=== PATIENT | female | born 1960 | race Caucasian/White ===

== ENCOUNTER 2019-02-26 18:41 | Emergency (ER) | payer OTHER ==
[~2019-02-26] VITALS: Ht 162.6 cm; Wt 75.0 kg
[2019-02-26] MEDS ORDERED: HYDROcodone/acetaminophen 5mg/325mg tablet PO STA (18:47)
[2019-02-26] MEDS ORDERED: naproxen sodium 220mg tablet PO STA (18:47)
[2019-02-26] MEDS ORDERED: BUPIVAcaine/PF 2.5 mg/ml (0.25%) 30ml vial IJ ONE (19:50)
[2019-02-26] MEDS ORDERED: cyclobenzaprine 10mg tablet PO ONE (19:50)
[2019-02-26] MEDS ORDERED: ketorolac trometh. 30mg/ml inj. IM ONE (19:50)
[2019-02-26] MEDS ORDERED: LIDOcaine 1% W/epiNEPHrine 1:100,000 20ml vial SQ ONE (19:50)
[2019-02-26] MEDS ORDERED: naproxen 500mg tablet PO ONE (19:50)
[2019-02-26] MEDS ORDERED: BUPIVAcaine/PF 2.5mg/ml (0.25%) 10ml vial IJ ONE (20:05)
[2019-02-26] MEDS ORDERED: CYCL-1 PO (20:46)
[2019-02-26 20:59] VITALS: BP 168/93
[2019-02-27] MEDS ORDERED: HYDR-3965 PO (15:35)
[2019-02-27] MEDS ORDERED: ONDA4TAB6 PO (15:35)
== END 2019-02-26 21:00 | disposition home or self-care (01) ==
LOC: ER 18:42
DX: M25.511 Pain in right shoulder (principal); M79.18 Myalgia, other site
CPT/HCPCS: 20552; 73030; 99284; J3490

== ENCOUNTER 2019-02-27 15:04 | Emergency (ER) | payer OTHER ==
[~2019-02-27] VITALS: Ht 165.1 cm; Wt 72.0 kg
[~2019-02-27 15:04] MED LIST: CYCL-1 PO
[2019-02-27 15:08] VITALS: BP 136/73
[2019-02-27] MEDS ORDERED: ketorolac tromethamine 15mg/ml inj. IM ONE (15:30)
[2019-02-27] MEDS ORDERED: ONDA4TAB6 PO (15:35)
[2019-02-27] MEDS ORDERED: HYDR-3965 PO (15:35)
== END 2019-02-27 16:05 | disposition home or self-care (01) ==
LOC: ER 15:04
DX: S46.001A Unspecified injury of muscle(s) and tendon(s) of the rotator cuff of right shoulder, initial encounter (principal); X50.1XXA Overexertion from prolonged static or awkward postures, initial encounter; Y93.89 Activity, other specified; Y92.89 Other specified places as the place of occurrence of the external cause; Y99.9 Unspecified external cause status
CPT/HCPCS: 29105; 96372; 99283; J1885

== ENCOUNTER 2019-08-19 05:37 | Day surgery (SDC) | payer OTHER ==
[2019-08-14 15:58] LABS: BASOPHILS # (AUTO) 0.1 X10'3 (0-0.2); BASOPHILS % (AUTO) 0.6 % (0-1); EOSINOPHILS # (AUTO) 0.1 X10'3 (0-0.9); EOSINOPHILS % (AUTO) 1.4 % (0-6); LYMPHOCYTES # (AUTO) 2.6 X10'3 (1.1-4.8); LYMPHOCYTES % (AUTO) 29.4 % (21-51); MEAN CORPUSCULAR HEMOGLOBIN 31.3 PG (27.0-31.0); MEAN CORPUSCULAR HGB CONC 33.8 g/dL (33.0-36.5); MEAN CORPUSCULAR VOLUME 92.6 FL (78-98); MEAN PLATELET VOLUME 8.9 FL (7.4-10.4); MONOCYTES # (AUTO) 0.6 X10'3 (0-0.9); MONOCYTES % (AUTO) 6.2 % (2-12); NEUTROPHILS # (AUTO) 5.6 X10'3 (1.8-7.7); NEUTROPHILS % (AUTO) 62.4 % (42-75); PRE OP HEMATOCRIT 39.9 % (35.0-45.0); PRE OP HEMOGLOBIN 13.5 g/dL (12.0-16.0); PRE OP PLATELET COUNT 310 X10'3 (140-440); RED BLOOD COUNT 4.31 X10'6 (4.20-5.60); RED CELL DISTRIBUTION WIDTH 13.2 % (11.5-14.5)
[2019-08-14 16:11] LABS: ALBUMIN 4.2 G/DL (3.4-5.0); ALBUMIN/GLOBULIN RATIO 1.3 (1.1-1.5); ALKALINE PHOSPHATASE 78 IU/L (46-116); BLOOD UREA NITROGEN 11 MG/DL (7-18); BUN/CREATININE RATIO 11.2 (6.6-38.0); CALCIUM 9.4 MG/DL (8.5-10.1); CHLORIDE 107 MMOL/L (99-107); CREATININE 0.98 MG/DL (0.40-0.90); PRE OP ALT 25 U/L (30-65); PRE OP ANION GAP 11 (8-16); PRE OP AST 17 U/L (10-37); PRE OP BILIRUB, TOTAL 0.5 MG/DL (0.0-1.0); PRE OP GLUCOSE 90 MG/DL (70-104); PRE OP SODIUM 144 MMOL/L (135-145); TOTAL CARBON DIOXIDE 26.5 MMOL/L (24-32); TOTAL PROTEIN 7.5 G/DL (6.4-8.2); eGFR 58 ML/MIN
[2019-08-19] VITALS (10 sets, daily range): BP systolic 112–175; BP diastolic 72–99
[~2019-08-19] VITALS: Ht 160 cm; Wt 77.1 kg
[~2019-08-19 05:37] MED LIST changes: -CYCL-1 PO; +NAPR-56 PO; +ceFAZolin 2gm in dextrose, iso 50 ML IV ONE; +famotidine 20mg tablet PO ONE; +ringers solution, lacted 1,000 ML IV SCH
[2019-08-19] MEDS ORDERED: LIDOcaine 1% (10mg/ml) 2ml vial ONE (06:30)
[2019-08-19] MEDS ORDERED: epiNEPHrine 1 mg/ml 30ml MDV ONE (06:48)
[2019-08-19] MEDS ORDERED: BUPIVAcaine/PF 2.5 mg/ml (0.25%) 30ml vial ONE (06:48)
[2019-08-19] MEDS ORDERED: propofol (Diprivan) 10mg/ml 100ml bottle IV ONE (07:15)
[2019-08-19] MEDS ORDERED: dexmedetomidine 200mcg/2ml inj. IV ONE (07:20)
[2019-08-19] MEDS ORDERED: cloNIDine hcl/PF 100mcg/ml inj ONE (07:20)
[2019-08-19] MEDS ORDERED: MIDAZolam 5mg/5ml vial ONE (07:25)
[2019-08-19] MEDS ORDERED: ROPIVAcaine 0.5% (5mg/ml) 30ml vial ONE (07:26)
[2019-08-19] MEDS ORDERED: fentaNYL /PF 50mcg/ml 5ml ampule ONE (07:26)
[2019-08-19] MEDS ORDERED: LIDOcaine 2% (20mg/ml) 5ml vial ONE (07:32)
[2019-08-19] MEDS ORDERED: dexamethasone sod phosphate 4mg/ml inj. ONE (08:23)
[2019-08-19] MEDS ORDERED: ondansetron/PF 4mg/2ml inj ONE (08:23)
[2019-08-19] MEDS ORDERED: ringers solution, lacted 1,000 ML IV SCH (08:25)
[2019-08-19] MEDS ORDERED: ondansetron/PF 4mg/2ml inj IV PRN (08:25)
[2019-08-19] MEDS ORDERED: morphine 4 MG/ML inj SYRINge IV PRN (08:25)
[2019-08-19] MEDS ORDERED: meperidine/PF 25mg/ml syringe IV PRN ×3 (08:25)
[2019-08-19] MEDS ORDERED: proCHLORperazine 10 MG/2 ml inj IV PRN (08:25)
[2019-08-19] MEDS ORDERED: morphine 2 MG/ML inj. syringe IV PRN (08:25)
--- NOTE | 2019-08-19 10:05 | NUR ---
RECEIVED FROM OR VIA [facility] ACCOMPANIED BY ANESTHESIOLOGIST DR FOWLER, REPORT GIVEN.PT DROWSY BUT AWAKENS AND DENIES PAIN. 20 GAUGE PIV L HAND PATENT AND RUNNING LR AT 100 ML/HR. TEGADERM DRESSINGS RIGHT SHOULDER CDI. VSS, SKIN PINK AND WARM, GOOD CAP REFILL, PERIPHERAL PULSES PALPABLE, RESTING COMFORTABLY.
--- NOTE | 2019-08-19 11:33 | NUR ---
AWAKE AND ALERT, DENIES PAIN. 20 GAUGE PIV L HAND DC/D CATH TIP INTACT. TEGADERM DRESSINGS RIGHT SHOULDER CDI. VSS, SKIN PINK AND WARM, GOOD CAP REFILL, PERIPHERAL PULSES PALPABLE, ABLE TO AMBULATE AND VOID. DISCHARGE INSTRUCTIONS GIVEN AND PT VERBALIZES UNDERSTANDING. TRANSPORTED VIA WHEELCHAIR TO DAUGHTER IN PRIVATE VEHICLE TO HOME
== END 2019-08-19 11:33 | disposition home or self-care (01) ==
LOC: PAS 05:37
PROVIDERS: ATTEND Orthopaedic Surgery
DX: S43.431A Superior glenoid labrum lesion of right shoulder, initial encounter (principal); M65.811 Other synovitis and tenosynovitis, right shoulder; G89.18 Other acute postprocedural pain; Z90.710 Acquired absence of both cervix and uterus; Z79.899 Other long term (current) drug therapy; Z11.59 Encounter for screening for other viral diseases; X58.XXXA Exposure to other specified factors, initial encounter; Y93.89 Activity, other specified; Y92.89 Other specified places as the place of occurrence of the external cause; Y99.8 Other external cause status
CPT/HCPCS: 29807; 36415; 64415; 80053; 82948; 85025; 93005; 93306; C1713; J0171; J0735; J1100; J2001; J2250; J2405; J2704; J3010; J3490; U0003; A4215; A4565; A4618; A6258; A7000; J2795; J7120